=== PATIENT | male | born 1975 | race Caucasian/White ===

== ENCOUNTER → 2024-06-28 07:54 | Outpatient (CLI) | payer BC, SELFPAY ==
--- NOTE | 2024-06-28 08:03 | DI.MRI.S_ITS ---
PROCEDURE: MR ELBOW RT WO CON INDICATIONS: injury of muscle, fascia and tendon BICEP RT ARM TECHNIQUE: Noncontrast coronal proton density fast spin echo and T2 fast spin echo with fat saturation, axial and sagittal T1 spin echo and T2 fast spin echo with fat saturation through the elbow. COMPARISON: None. FINDINGS: Image quality: Excellent. Lateral structures: The lateral ulnar collateral ligament and radial collateral ligament both appear thickened. The overlying common extensor tendon also appears mildly thickened with surrounding soft tissue edema at its lateral epicondylar insertion. Medial structures: The ulnar collateral ligament appears intact. The overlying common flexor tendon appears mildly thickened with intrasubstance T2 hyperintense signal at its medial epicondylar insertion. The ulnar nerve appears normal in size and signal within the cubital tunnel. Anterior structures: Full-thickness rupture involving distal biceps tendon at its proximal radial insertion is seen with up to 4 cm proximal retraction of torn tendon fibers and moderate surrounding fluid. Normal lacertus fibrosis is not visualized. There is also low to moderate grade partial-thickness tear involving distal brachialis tendon at its insertion on proximal ulnar shaft. The median and radial neurovascular bundles appear normal; no focal muscle atrophy to suggest nerve impingement. Posterior structures: The conjoint triceps tendon from the long and lateral heads appears intact. The medial head of the triceps tendon also appears normal, with direct muscle insertion onto the olecranon. No olecranon bursal fluid. Bone and cartilage: No bone marrow contusions or fractures. No osteochondral injuries. IMPRESSION: 1. Full-thickness rupture involving distal biceps tendon at its proximal radial insertion with up to 4 cm proximal retraction of torn tendon fibers and moderate amount of surrounding fluid. 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 2. Low to moderate grade partial-thickness tear involving distal brachialis tendon at its proximal ulnar insertion. 3. Mild medial and lateral epicondylitis as described above. 4. No marrow edema. No fracture or dislocation. Dictated by: Alen Pfeiffer M.D. on 06/28/2024 at 15:53 Approved by: Alen Pfeiffer M.D. on 06/28/2024 at 16:02
== END ==
PROVIDERS: Referring Provider Physician Assistant; Visit Provider Physician Assistant
DX: S46.291A Other injury of muscle, fascia and tendon of other parts of biceps, right arm, initial encounter (principal); S46.211A Strain of muscle, fascia and tendon of other parts of biceps, right arm, initial encounter; S46.811A Strain of other muscles, fascia and tendons at shoulder and upper arm level, right arm, initial encounter; M77.11 Lateral epicondylitis, right elbow; M77.01 Medial epicondylitis, right elbow; X58.XXXA Exposure to other specified factors, initial encounter
CPT/HCPCS: 73221